=== PATIENT | female | born 1985 | race Caucasian/White ===

== ENCOUNTER 2021-12-25 21:18 | Emergency (ER) | payer MEDICAID ==
[~2021-12-25] VITALS: Ht 162.6 cm; Wt 84.4 kg
[2021-12-25 21:37] VITALS: BP_SYST 141
--- NOTE | 2021-12-25 23:05 | NUR ---
Called patient 3x, no answer. No further treatment provided. ER aware
[2021-12-26] MEDS ORDERED: HYDR-3917 PO (12:59)
== END 2021-12-25 23:05 | disposition left against medical advice (07) ==
LOC: SED 21:18
DX: R20.2 Paresthesia of skin (principal); Z53.21 Procedure and treatment not carried out due to patient leaving prior to being seen by health care provider

== ENCOUNTER 2021-12-26 09:28 | Emergency (ER) | payer MEDICAID ==
[~2021-12-26] VITALS: Ht 162.6 cm; Wt 85.3 kg
[2021-12-26 09:44] VITALS: BP_SYST 146
--- NOTE | 2021-12-26 09:44 | NUR ---
Patient triaged and placed in waiting room. VSS and patient appears in no acute distress at this time. Accompanied by SELF, awaiting available bed, and MD notified of need for MSE.
--- NOTE | 2021-12-26 09:45 | NUR ---
PT CAME IN [facility] REPORTS RIGHT HIP PAIN RADIATING DOWN TO FOOT WITH NUMBNESS, WORSE WITH WALKING SINCE WEDNESDAY. STATES PAIN DECREASED WHEN SITTING OR LAYING DOWN. HAS BEEN TAKING TYLENOL AT HOME WITHOUT RELIEF. PT IS AMBULATORY, AAOX4, VSS
--- NOTE | 2021-12-26 10:31 | NUR ---
Placed in room 6 . Placed on site monitor, blood pressure machine and pulse oximeter. To gown for exam. Side rails up. Report given to ANCA FELIX.
--- NOTE | 2021-12-26 11:03 | NUR ---
ER Dr. Resendiz at bedside examining patient.
[2021-12-26] MEDS ORDERED: HYDROcodone/ACETAMIN 10-325 MG TAB PO ONE (12:00)
[2021-12-26] MEDS ORDERED: HYDR-3917 PO (12:59)
--- NOTE | 2021-12-26 13:15 | NUR ---
Patient given written and verbal discharge instructions and verbalizes understanding. ER MD discussed with patient the results and treatment provided. Patient in stable condition. ID arm band removed. Rx of hydrocodone given. Patient educated on pain management and to follow up with PMD. Pain Scale 6/10. Opportunity for questions provided and answered. Medication side effect fact sheet provided.
== END 2021-12-26 13:15 | disposition home or self-care (01) ==
LOC: SED 09:28
DX: G62.9 Polyneuropathy, unspecified (principal); R20.2 Paresthesia of skin; Z79.899 Other long term (current) drug therapy
CPT/HCPCS: 93971; 99284